=== PATIENT | female | born 1995 | race Two or more races ===

== ENCOUNTER 2018-12-24 08:51 | Emergency (ER) | payer OTHER ==
[2018-12-24 09:02] VITALS: BP 128/72
--- NOTE | 2018-12-24 10:33 | ED Physician Documentation ---
PD HPI LOWER EXT INJURY - Stated complaint Stated Complaint: ANKLE INJURY - Chief complaint Chief Complaint: Ext Problem - History obtained from History obtained from: Patient - History of Present Illness PD HPI LOW EXT INJURY LOCATION: Right, Ankle Type of injury: Twist Where injury occurred: Work Timing - onset: How many days ago (2) Timing - duration: Days (2) Timing - details: Abrupt onset, Still present Improved by: Rest, Immobilization Worsened by: Moving, Palpating Associated symptoms: Swelling. No: Weakness, Numbness Contributing factors: No: Anticoagulated Similar symptoms before: Has not had sx before Recently seen: Not recently seen - Additional information Additional information: 23-year-old female was walking down the stairs at work 2 days ago when she missed the last step and twisted her right ankle. She has pain in the lateral aspect of the ankle and she has been able to walk on this but has excessive pain when she continues to walk on it. Review of Systems Constitutional: denies: Fever Respiratory: denies: Cough GI: denies: Vomiting Musculoskeletal: reports: Joint pain, Pain with weight bearing. denies: Back pain, Extremity pain PD PAST MEDICAL HISTORY - Past Medical History Past Medical History: No - Present Medications Home Medications: Ambulatory Orders Medication Instructions Recorded Confirmed No Known Home Medications 12/24/18 12/24/18 - Allergies Allergies/Adverse Reactions: Allergies Allergy/AdvReac Type Severity Reaction Status Date / Time No Known Drug Allergies Allergy Verified 12/24/18 09:02 - Social History Does the pt smoke?: No Smoking Status: Never smoker PD ED PE NORMAL - Vitals Vital signs reviewed: Yes (normal ) - General General: Alert and oriented X 3, No acute distress, Well developed/nourished - HEENT HEENT: Atraumatic, PERRL, EOMI - Respiratory Respiratory: No respiratory distress - Derm Derm: Normal color, Warm and dry, No rash - Extremities Extremities: No deformity, No edema, Other (tenderness over the talofibular ligament distal n/v intact. 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, No motor deficit, No sensory deficit, Normal speech Eye Opening: Spontaneous Motor: Obeys Commands Verbal: Oriented GCS Score: 15 - Psych Psych: Normal mood, Normal affect Results - Vitals Vitals: Vital Signs - 24 hr 12/24/18 09:00 Temperature 35.8 C L Heart Rate 72 Respiratory 14 Rate Blood Pressure 128/72 O2 Saturation 99 Oxygen O2 Source Room air - Rads (name of study) ankle Radiology: Prelim report reviewed (Impression: No fracture or dislocation.), EMP read indepedently, See rad report PD MEDICAL DECISION MAKING - ED course Complexity details: considered differential, d/w patient ED course: 23-year-old female with a sprained ankle on the right has no evidence of fracture on x-ray examination she is placed in an ankle gel cast. Departure - Departure Disposition: 01 Home, Self Care Clinical Impression: Ankle sprain Qualifiers: Encounter type: initial encounter Involved ligament of ankle: calcaneofibular ligament Laterality: right Qualified Code(s): S93.411A - Sprain of calcaneofibular ligament of right ankle, initial encounter Condition: Stable Instructions: ED Sprain Ankle W X Ray Follow-Up: [facility] [Provider Group] Discharge Date/Time: 12/24/18 10:37
--- NOTE | 2018-12-24 11:07 | XRAY Report ---
Reason: pain/twisted it 2 days ago Procedure Date: 12/24/2018 Accession Number: [id number] / [id number] Procedure: XR - Ankle 3 View RT CPT Code: FULL RESULT: EXAM: RIGHT ANKLE RADIOGRAPHY EXAM DATE: 12/24/2018 09:44 AM. CLINICAL HISTORY: Pain, inversion injury after twisting ankle while walking down steps 2 days ago. COMPARISON: None. TECHNIQUE: 3 views. FINDINGS: Bones: Normal. No fractures or bone lesions. Joints: Normal. No effusion. No subluxations. The ankle mortise is normally aligned. Soft Tissues: Normal. No soft tissue swelling. IMPRESSION: No fracture or dislocation. RADIA
== END 2018-12-24 10:37 | disposition home or self-care (01) ==
LOC: ED 08:51
DX: S93.411A Sprain of calcaneofibular ligament of right ankle, initial encounter (principal); X50.1XXA Overexertion from prolonged static or awkward postures, initial encounter; Y93.01 Activity, walking, marching and hiking; Y99.0 Civilian activity done for income or pay
CPT/HCPCS: 99283

== ENCOUNTER 2019-04-06 08:23 | Emergency (ER) | payer BC ==
[2019-04-06] MEDS ORDERED: ONDANSETRON ODT 4 MG TABLET TL STA (08:50)
--- NOTE | 2019-04-06 08:53 | ED Physician Documentation ---
PD HPI URI - Stated complaint Stated Complaint: VOMITING - Chief complaint Chief Complaint: Resp - History obtained from History obtained from: Patient - History of Present Illness Timing - onset: How many days ago (5) Timing duration: Days (5) Timing details: Gradual onset, Still present Severity Comments: moderate cough, nonproductive Associated symptoms: Fever, Sore throat, Dry cough, Dyspnea, NVD. No: Nasal congestion, Sinus pain, Hemoptysis, Chest pain, Bilateral edema, Unilateral edema Contributing factors: No: Sick contact, Travel, Immunocompromised, Unimmunized, COPD / asthma Improves by: Nothing Similar symptoms before: Has not had sx before Recently seen: Not recently seen - Treatment prior to arrival Treatment prior to arrival: tylenol for fever of 102 Review of Systems Ten Systems: 10 systems reviewed and negative Constitutional: reports: Fever, Fatigue. denies: Chills Eyes: reports: Reviewed and negative Ears: reports: Reviewed and negative Nose: denies: Rhinorrhea / runny nose, Congestion Throat: reports: Sore throat Respiratory: reports: Dyspnea, Cough. denies: Hemoptysis, Wheezing GI: reports: Nausea, Vomiting, Diarrhea. denies: Abdominal Pain, Abdominal Swelling Neurologic: reports: Reviewed and negative Psychiatric: reports: Reviewed and negative PD PAST MEDICAL HISTORY - Past Medical History Past Medical History: No - Present Medications Home Medications: Ambulatory Orders Medication Instructions Recorded Confirmed Azithromycin [Zithromax] 0 mg PO DAILY #6 tablet 04/06/19 Benzonatate [Tessalon Perle] 100 - 200 mg PO TID PRN #20 capsule 04/06/19 Ondansetron Odt [Zofran] 4 mg TL Q6H PRN #10 tablet 04/06/19 - Allergies Allergies/Adverse Reactions: Allergies Allergy/AdvReac Type Severity Reaction Status Date / Time No Known Drug Allergies Allergy Verified 04/06/19 08:31 - Social History Does the pt smoke?: No Smoking Status: Never smoker PD ED PE NORMAL - Vitals Vital signs reviewed: Yes - General General: Alert and oriented X 3 - HEENT HEENT: Atraumatic, PERRL, EOMI, Ears normal, Moist mucous membranes, Pharynx benign, Other (mild hoarseness of voice, no drooling) - Neck Neck: Supple, no meningeal sign, No JVD - Cardiac Cardiac: RRR, No murmur, No gallop, No rub - Respiratory Respiratory: No respiratory distress, Clear bilaterally - Abdomen Abdomen: Soft, Non tender, Non distended - Female Female : Deferred - Rectal Rectal: Deferred - Derm Derm: Normal color, Warm and dry, No rash - Extremities Extremities: No deformity, No edema - Neuro Neuro: Alert and oriented X 3 Eye Opening: Spontaneous Motor: Obeys Commands Verbal: Oriented GCS Score: 15 - Psych Psych: Normal mood, Normal affect Results - Vitals Vitals: Vital Signs - 24 hr 04/06/19 08:28 Temperature 36.2 C L Heart Rate 82 Respiratory 20 Rate Blood Pressure 140/91 H O2 Saturation 98 Oxygen O2 Source Room air PD MEDICAL DECISION MAKING - ED course Complexity details: considered differential, d/w patient ED course: ddx- bronchitis, pneumonia, uri, laryngitis, viral syndrome, flu 24 y/o F with cough, fever, feeling a little sob. Vomiting after coughing hard but also some nausea and diarrhea present. Pt overall well appearing however with normal vitals and sats and benign examination. Possibly a bacterial bronchitis or mild pneumonia vs URI. Will give trial of antibiotics and continued supportive care with tylenol, tessalon perles and honey advised for cough and zofran prn for nausea. Pt advised to return to the ED if any worsening symptoms or new concerning symptoms. Departure - Departure Disposition: 01 Home, Self Care Clinical Impression: Bronchitis Condition: Stable Record reviewed to determine appropriate education?: Yes Instructions: ED Upper Resp Infec Abx Tx Follow-Up: your, doctor [Other] - Within 1 week Prescriptions: Azithromycin [Zithromax] 0 mg PO DAILY #6 tablet Benzonatate [Tessalon Perle] 100 - 200 mg PO TID PRN #20 capsule PRN Reason: Cough Ondansetron Odt [Zofran] 4 mg TL Q6H PRN #10 tablet PRN Reason: Nausea / Vomiting Comments: Follow up with your PCP if symptoms persist. Take antibiotics until complete. Return to ED if shortness of breath or worsening symptoms develop.
[2019-04-06 09:16] VITALS: BP 128/74
== END 2019-04-06 09:15 | disposition home or self-care (01) ==
LOC: ED 08:23
DX: J40 Bronchitis, not specified as acute or chronic (principal)
CPT/HCPCS: 99282; 99284; Q0162

== ENCOUNTER 2022-04-23 13:08 | Emergency (ER) | payer BC ==
[2022-04-23 13:29] VITALS: BP 135/84
[2022-04-23 13:48] LABS: BASOPHILS # (AUTO) 0.1 10^3/uL (0.0-0.1); BASOPHILS % (AUTO) 0.9 %; EOSINOPHILS # (AUTO) 0.2 10^3/uL (0.0-0.7); EOSINOPHILS % (AUTO) 2.7 %; HCT - HEMATOCRIT 40.7 % (37.0-47.0); HGB - HEMOGLOBIN 13.7 g/dL (12.0-16.0); LYMPHOCYTES # (AUTO) 2.2 10^3/uL (1.5-3.5); LYMPHOCYTES % (AUTO) 32.1 %; MEAN CORPUSCULAR HEMOGLOBIN 30.9 pg (27.0-31.0); MEAN CORPUSCULAR HGB CONC 33.7 g/dL (32.0-36.0); MEAN CORPUSCULAR VOLUME 91.9 fL (81.0-99.0); MEAN PLATELET VOLUME 10.5 fL (7.9-10.8); MONOCYTES # (AUTO) 0.3 10^3/uL (0.0-1.0); MONOCYTES % (AUTO) 4.2 %; NEUTROPHILS # (AUTO) 4.2 10^3/uL (1.5-6.6); PLT - PLATELET COUNT 284 10^3/uL (130-450); RED BLOOD COUNT 4.43 10^6/uL (4.20-5.40); RED CELL DISTRIBUTION WIDTH 12.4 % (12.0-15.0)
[2022-04-23 13:56] LABS: BILIRUBIN,URINE NEGATIVE (NEGATIVE); GLUCOSE, URINE (UA) NEGATIVE (NEGATIVE); KETONES,URINE (UA) NEGATIVE (NEGATIVE); LEUKOCYTE ESTERASE, URINE NEGATIVE (NEGATIVE); NITRITE,URINE NEGATIVE (NEGATIVE); OCCULT BLOOD,URINE NEGATIVE (NEGATIVE); PH,URINE 7.5 PH (5.0-7.5); PROTEIN,URINE NEGATIVE (NEGATIVE); UROBILINOGEN,URINE 0.2 (NORMAL) E.U./dL (NORMAL)
[2022-04-23 13:58] LABS: CLARITY,URINE CLEAR (CLEAR); HCG UR QUAL NEGATIVE
[2022-04-23 14:01] LABS: ALBUMIN 4.8 g/dL (3.2-5.5); ALBUMIN/GLOBULIN RATIO 1.4 (1.0-2.2); BILIRUBIN,TOTAL 0.9 mg/dL (0.2-1.0); CREATININE 0.6 mg/dL (0.4-1.0); TOTAL PROTEIN 8.2 g/dL (6.7-8.2)
== END 2022-04-23 14:51 | disposition left against medical advice (07) ==
LOC: ED 13:08
DX: Z53.21 Procedure and treatment not carried out due to patient leaving prior to being seen by health care provider (principal)
CPT/HCPCS: 36415; 80053; 81001; 81003; 81025; 83690; 85025; 87086